=== PATIENT | female | born 1980 | race Caucasian/White ===

== ENCOUNTER → 2020-02-22 | Outpatient (CLI) | payer OTHER ==
[~2020-02-22] MED LIST: LIDOCAINE 1% MDV 20ML VIAL As Ordered ONE; SODIUM BICARBONATE 8.4% INJ 50MEQ 50 ML VIAL As Ordered ONE
--- NOTE | 2020-02-25 17:23 | REP ---
STEREOTACTIC IMAGES LEFT BREAST: Stereotactic floral arranger images of the left breast are performed prior to a scheduled stereotactic biopsy of clustered microcalcifications inferiorly in the left breast. A lateral to medial approach was planned. The calcifications are seen within the biopsy window. However, the compressed breast thickness was close to 1 cm and the tissue thickness was not adequate to allow for sufficient needle throw. The biopsy could not be performed. The patient will be scheduled at the [facility] to attempt stereotactic biopsy using the prone biopsy unit. Electronically Signed by Dakota Fernandez MD 02/26/2020 10:26 A
== END ==
LOC: M IRPRO 11:38
PROVIDERS: ATTEND Family Medicine
DX: R92.0 Mammographic microcalcification found on diagnostic imaging of breast (principal); Z53.8 Procedure and treatment not carried out for other reasons

== ENCOUNTER → 2020-03-07 | Outpatient (CLI) | payer OTHER ==
[~2020-03-07] MED LIST changes: +BIOT1CAP2 PO; -LIDOCAINE 1% MDV 20ML VIAL As Ordered ONE; +MULTCAP PO; -SODIUM BICARBONATE 8.4% INJ 50MEQ 50 ML VIAL As Ordered ONE; +SYNT112T2 PO; +VITA500079 PO
[2020-03-07 09:54] VITALS: BP 90/62
--- NOTE | 2020-03-07 11:44 | REP ---
STEREOTACTIC NEEDLE BIOPSY PROCEDURE LEFT BREAST: HISTORY: Microcalcifications. Comparison mammography is reviewed from February 05, 2020, February 12, 2020, and February 22, 2020. On the date, the patient had an attempt at stereotactic needle biopsy in an upright stereotactic breast unit. This failed because of lack of sufficient compressed breast thickness. The patient is referred for attempted stereotactic needle biopsy on the prone table device using a lateral arm approach. PROCEDURE: The patient was interviewed and informed consent was obtained by Alen Wade SA. The patient was placed in the prone biopsy table. Targeting images were obtained in the craniocaudal and the lateromedial approach and the microcalcifications were visualized. However, targeting could not be accomplished safely as the calcifications are apparently too close to the inferior breast skin to allow for safe sampling even with the lateral arm approach. Accordingly, the stereotactic biopsy procedure had to be abandoned. At my request, diagnostic mammography left breast was performed with tomography in an attempt to determine if these calcifications could be benign dermal calcifications. See separate report. IMPRESSION: Failed attempt at stereotactic needle biopsy, prone table, lateral arm approach. The target calcifications are too close to the overlying skin to allow for safe sampling.
--- NOTE | 2020-03-07 11:48 | REP ---
DIGITAL DIAGNOSTIC UNILATERAL LEFT BREAST MAMMOGRAPHY WITH 3-D TOMOGRAPHY: HISTORY: Screening diagnostic mammography demonstrated a microcalcific grouping. The patient is status post two failed attempts at stereotactic needle biopsy because of very thin compressed breast thickness. Comparison mammography is from February 22, 2020 and February 12, 2020. The mammogram is reviewed from February 05, 2020. FINDINGS: Today's views were obtained after a failed attempt at a lateral arm stereotactic approach with the prone breast biopsy table. The calcifications were lining up too close to the skin to allow for safe sampling in both the craniocaudal projection and the lateral medial projection. Accordingly, and at my request, repeat mammography with tomography was performed in attempt to see if these were actually dermal calcifications. The calcifications are seen six to eight tomographic slices and deep to the inferior skin in the left breast. They are not felt to be dermal accordingly. IMPRESSION: The calcifications are not felt to be dermal calcifications. Since stereotactic needle biopsy procedure is not feasible, consideration could be given to mammographically guided needle localization directed excisional biopsy.
== END ==
LOC: M WHCPRO 09:34
PROVIDERS: ATTEND Family Medicine
DX: R92.0 Mammographic microcalcification found on diagnostic imaging of breast (principal)
CPT/HCPCS: 77065; G0279

== ENCOUNTER → 2020-03-21 | Outpatient (CLI) | payer OTHER ==
--- NOTE | 2020-03-25 09:34 | REP ---
FOCUSED LEFT BREAST SONOGRAPHY: HISTORY: Microcalcifications left breast. Failed attempt at stereotactic needle biopsy for these microcalcifications. Ultrasound 12-o'clock position left breast 1-2 cm from the nipple for possible hypoechoic area. Please evaluate if calcifications seen. FINDINGS: Left breast is scanned in the 12-o'clock position. Normal heterogeneous fibroglandular background echotexture is seen. Smooth and augmentation implant margins are seen. No hypoechoic lesion mass or abnormal acoustic shadowing is observed. Incidentally noted is a simple cyst 5 mm in greatest diameter located 5 cm from the nipple. IMPRESSION: BIRADS category 2 benign findings. No microcalcifications could be visualized sonographically.
== END ==
LOC: M WHC 09:23
PROVIDERS: ATTEND Surgery
DX: N60.02 Solitary cyst of left breast (principal)

== ENCOUNTER → 2020-03-29 | Outpatient (CLI) | payer OTHER ==
[~2020-03-29] MED LIST changes: +IBUP200C25 PO; +ULTR50TA8 PO; +VITAD1000T PO
== END ==
LOC: M LABSMTC 08:27
PROVIDERS: ATTEND Anesthesiology
DX: Z01.818 Encounter for other preprocedural examination (principal); Z11.59 Encounter for screening for other viral diseases

== ENCOUNTER 2020-04-01 10:47 | Day surgery (SDC) | payer OTHER ==
[~2020-04-01] VITALS: Ht 172.7 cm; Wt 65.8 kg
[~2020-04-01 10:47] MED LIST changes: +HEPARIN SOD (PORCINE) 5000UNITS/ML VIAL (J1644 PER 1000UNITS) SQ ONE; +LIDOCAINE 2% 100MG/5ML SDV (FOR ANES.) As Ordered ONE; +LR 1,000 ML IV ONE; +MIDAZOLAM INJ 2MG/2ML VIAL (J2250 PER 1MG) As Ordered ONE; +ONDANSETRON 4MG/2ML VIAL As Ordered ONE; +ROCURONIUM BROMIDE 50 MG/5 ML VIAL As Ordered ONE; +SUGAMMADEX SODIUM 500 MG/5 ML VIAL (BRIDION) As Ordered ONE; -ULTR50TA8 PO; +ceFAZolin SOD 2 GM in IV 1 EA IV ONE; +dexameTHASONE 4 MG/ML 1ML VIAL (J1100 PER 1MG) As Ordered ONE; +fentaNYL 100 MCG/2 ML INJECTION (J3010) As Ordered ONE; +propofoL 200 MG/20 ML VIAL As Ordered ONE
[2020-04-01] MEDS ORDERED: LIDOCAINE 1% SDV 30ML VIAL As Ordered ONE (11:33)
[2020-04-01] MEDS ORDERED: BUPIVACAINE HCL 0.25% 30ML VIAL As Ordered ONE (11:33)
[2020-04-01] MEDS ORDERED: LIDOCAINE 1% MDV 20ML VIAL As Ordered ONE (11:35)
[2020-04-01] MEDS ORDERED: PHENYLephrine HCL 500 MCG/5 ML (100MCG/ML) SYRINGE (J2370) As Ordered ONE (13:13)
[2020-04-01] MEDS ORDERED: ePHEDrine SULFATE 25 MG/5 ML(5MG/ML) SYRINGE As Ordered ONE (13:13)
[2020-04-01] MEDS ORDERED: ACETAMINOPHEN 1000MG 100ML IV BTL (OFIRMEV) (J0131 PER 10MG) As Ordered ONE (13:17)
[2020-04-01] MEDS ORDERED: GLYCOPYRROLATE INJ 0.2 MG/ML 2 ML VIAL As Ordered ONE (13:28)
--- NOTE | 2020-04-01 14:45 | REP ---
SPECIMEN RADIOGRAPHY LEFT BREAST: HISTORY: Left breast excisional biopsy. Kopans wire placement. COMPARISON MAMMOGRAPHY: March 07, 2020 FINDINGS: A sequence of five specimen radiography images are presented. The initial four views appear to be of a single specimen. No microcalcifications are visible within this. The fifth image demonstrates a needle localization wire through the specimen. Adjacent to the wire, there is the microcalcific grouping which was visible on the January 07, 2020 prior mammography. Electronically Signed by Alan Casillas MD 04/01/2020 04:41 P
[2020-04-01] MEDS ORDERED: fentaNYL 100 MCG/2 ML INJECTION (J3010) IV PRN (15:15)
[2020-04-01] MEDS ORDERED: ONDANSETRON 4MG/2ML VIAL IV PRN (15:15)
[2020-04-01] MEDS ORDERED: LR 1,000 ML IV SCH (15:15)
[2020-04-01] MEDS ORDERED: METOCLOPRAMIDE INJ 10MG/2ML VIAL (J2765 PER 1) IV PRN (15:15)
[2020-04-01] MEDS ORDERED: HYDROMORPHONE HCL 0.5 MG/ 0.5 ML SYRINGE (J1170 PER 1) IV PRN (15:15)
[2020-04-01] MEDS ORDERED: oxyCODONE 5MG TAB PO PRN (15:15)
[2020-04-01] MEDS ORDERED: ULTR50TA8 PO (15:21)
--- NOTE | 2020-04-01 15:42 | REP ---
DIGITAL DIAGNOSTIC UNILATERAL LEFT BREAST MAMMOGRAPHY: Four views. HISTORY: Left breast excisional biopsy. Needle localization. Comparison mammography March 07, 2020. FINDINGS: A sequence of four craniocaudad views of the left breast document Kopans needle wire localization placement along the posterior aspect of the microcalcific grouping in this single-plane mammogram. Unreviewed
[2020-04-01 16:25] VITALS: BP 105/67
--- NOTE | 2020-04-01 18:53 | ROOPDOC ---
[facility] Report Of Operation Report of Operation DATE OF PROCEDURE: 04/01/20 PREPROCEDURE DIAGNOSES: Left breast suspicious calcifications. POSTPROCEDURE DIAGNOSES: Left breast suspicious calcifications. PROCEDURE: Left breast excisional biopsy of suspicious calcifications. SURGEON: Yodit Vu SUGAR COATING HAND: ANESTHESIA: Gen. anesthetic was used. ESTIMATED BLOOD LOSS: Approximately 5 mL. COMPLICATIONS: None. REMARKS: Calcifications seen in the final specimen, no clip is present since biopsy was not done prior to surgery. DESCRIPTION OF PROCEDURE: INDICATIONS: Ms. Newby is a 39-year-old woman who was found to have suspicious left breast calcifications on screening mammogram. Two attempts were made to do stereotactic biopsy but due to location of calcifications the biopsy was aborted. Patient was offered excisional biopsy. She was medically cleared for surgery by her primary care doctor. Risks and possible complications of surgical procedure including bleeding, infection and injury to surrounding structures were explained to the patient and she wished to proceed. Consent was signed. My initials were placed on the operative site. Subcutaneous injection of 5000 units of heparin was done in Preop. Wire localization was done prior to procedure by Radiology Department. Post localization DETAILS: Patient was taken to the operating room and placed on the operating room table. A sign in was called stating patients name, date of and the procedure to be done. Preoperative antibiotics were infused. Smooth induction of general anesthesia was done. Patients hands were extended on arm rests. Care was taken not to over extend the arms. Next, patients left breast and axilla were prepped and draped in the usual fashion. Care was taken not to displace the wire. Appropriate time out was done again prior second part of the procedure. Patients name, date of , and the procedure to be done were confirmed. Next, local anesthetic using 1% lidocaine and 0.25 % Marcaine 50/50 mix was injected at the site of planned periareolar incision. The incision was made with the scalpel. Subcutaneous skin flaps were raised and the guide wire was carefully pulled into the wound. Dissection was carries anteriorly to the wire where the calcifications were expected to be. Care was taken not to injure the breast implant. Three different specimens were excised of the tissue anterior to the wire and no calcifications were identified in those specimens. The final specimen included the wire and posterior tissues. Calcifications were seen in the final specimen. This final specimen was marked with the surgical inking kit following the standard colors recommendations keeping its proper orientation. The previously excised specimens were sent to pathology unoriended as a part of left breast excisional biopsy. The specimen was labeled with patients name and sent to pathology. Radiology department (Dr Fernandez) was consulted upon excision of each specimen and provided information regarding presence or absence of calcifications. Next, the wound was irrigated thoroughly and adequate hemostasis was assured. Additional local anesthetic was injected into surrounding tissues. space was approximated with 3-0 Vicryl. The dermis was closed with 3-0 Monocryl and skin was closed with 4-0 Monocryl. Surgical glue was placed over the incision. Patient emerged from the anesthesia without any problems. Fluffs were placed over the operative site and patients chest was wrapped snuggly in the ROCHELLE wrap. Sponge and instrument counts were done and were correct. Patient tolerated procedure well and was taken to recovery unit in stable condition. YODIT VU DO April 01, 2020 18:53
--- NOTE | 2020-04-03 16:49 | REP ---
LEFT BREAST LOCALIZATION The procedure was performed under the direct supervision of Dr. Fernandez. The patient has a history of clustered microcalcifications inferiorly in the left breast seen on a previous mammogram from [facility] performed on 02/12/2020. The patient had an attempted upright stereotactic breast biopsy on 02/22/2020 as well as an attempt a stereotactic biopsy in the prone table on 03/07/2020. In both cases there is not enough breast compression thickness in order to advance the needle. The risks and benefits of the procedure were explained to the patient and informed consent was obtained. A mediolateral approach was utilized. The calcifications were localized using mammographic guidance. The skin was prepped and draped in a sterile fashion. 1% lidocaine was used as a local anesthetic. A Kopans needle wire localization system was inserted. Follow-up mammographic images demonstrate the Kopans needle wire to be placed along the posterior aspect of the microcalcification. The patient tolerated the procedure well and there were no immediate complications. Electronically Signed by DEBBY Martini 04/01/2020 04:46 P Electronically Signed by Dakota Fernandez MD 04/01/2020 05:34 P
== END 2020-04-01 17:30 | disposition home or self-care (01) ==
LOC: M SDC 10:47
PROVIDERS: ATTEND Surgery
DX: D05.12 Intraductal carcinoma in situ of left breast (principal); E03.9 Hypothyroidism, unspecified; Z79.899 Other long term (current) drug therapy; Z98.82 Breast implant status; Z88.1 Allergy status to other antibiotic agents
CPT/HCPCS: 19125; 36415; 81025; 86850; 86900; 86901; 88305; J0131; J0690; J1100; J1644; J2250; J2370; J2405; J3010

== ENCOUNTER → 2020-04-16 | Outpatient (REF) | payer OTHER ==
[~2020-04-16] MED LIST changes: -HEPARIN SOD (PORCINE) 5000UNITS/ML VIAL (J1644 PER 1000UNITS) SQ ONE; +KEFL500C17 PO; -LIDOCAINE 2% 100MG/5ML SDV (FOR ANES.) As Ordered ONE; -LR 1,000 ML IV ONE; -MIDAZOLAM INJ 2MG/2ML VIAL (J2250 PER 1MG) As Ordered ONE; -ONDANSETRON 4MG/2ML VIAL As Ordered ONE; -ROCURONIUM BROMIDE 50 MG/5 ML VIAL As Ordered ONE; -SUGAMMADEX SODIUM 500 MG/5 ML VIAL (BRIDION) As Ordered ONE; +ULTR50TA8 PO; -ceFAZolin SOD 2 GM in IV 1 EA IV ONE; -dexameTHASONE 4 MG/ML 1ML VIAL (J1100 PER 1MG) As Ordered ONE; -fentaNYL 100 MCG/2 ML INJECTION (J3010) As Ordered ONE; -propofoL 200 MG/20 ML VIAL As Ordered ONE
[2020-04-16 13:46] LABS: BLOOD UREA NITROGEN 14 MG/DL (7-18); CARBON DIOXIDE LEVEL 29 MEQ/L (21-32); CHLORIDE LEVEL 108 MEQ/L (98-107); CREATININE FOR GFR 0.94 MG/DL (0.55-1.30); GLOMERULAR FILTRATION RATE > 60.0 (>58); GLUCOSE, FASTING 85 MG/DL (70-100); POTASSIUM SERUM 4.1 MEQ/L (3.5-5.1); SODIUM LEVEL 142 MEQ/L (136-145)
== END ==
LOC: M PLALAB 09:44
PROVIDERS: ATTEND Surgery
DX: D05.12 Intraductal carcinoma in situ of left breast (principal)

== ENCOUNTER → 2020-04-18 | Outpatient (CLI) | payer OTHER ==
[~2020-04-18] MED LIST changes: -KEFL500C17 PO; +PROHANCE 279.3MG/ML 15ML VIAL As Ordered ONE
--- NOTE | 2020-04-22 12:18 | REP ---
MRI BILATERAL BREASTS WITH AND WITHOUT CONTRAST: HISTORY: Ductal carcinoma in situ left breast. COMPARISON: Mammogram 02/05/2020, 02/12/2020 and 03/07/2020. TECHNIQUE: Multiple sequences obtained in the axial, coronal and sagittal planes prior to and following the intravenous administration of 13 mL ProHance. Images are evaluated on the [employer] software, including dynamic post-IV gadolinium, axial T1 fat sat images, subtraction images, color overlay images, CAD and MIP reconstruction images. There are bilateral breast implants. These are intact with no evidence of intracapsular or extracapsular rupture. There is moderate bilateral fibroglandular tissue present. A subcentimeter cyst is seen in the upper outer quadrant of the left breast. There is no axillary adenopathy bilaterally. A few small axillary lymph nodes are present bilaterally. Mild postsurgical changes are seen inferolaterally in the left breast. Patient had a recent needle localization and excisional biopsy. There is some minimal postsurgical enhancement in that region. No suspicious enhancing mass or morphologic abnormality is seen bilaterally. IMPRESSION: BIRADS category 6 known left breast cancer. 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 There is minimal postsurgical enhancement in that region of the left breast. No suspicious enhancing mass or morphologic abnormality is seen. Bilateral breast implants are intact with no evidence of intracapsular or extracapsular rupture. No axillary adenopathy. Electronically Signed by Dakota Fernandez MD 04/22/2020 01:41 P
== END ==
LOC: M RAD 14:19
PROVIDERS: ATTEND Family Medicine
DX: D05.12 Intraductal carcinoma in situ of left breast (principal)
CPT/HCPCS: A9576; C8908

== ENCOUNTER 2020-04-29 07:00 | Day surgery (SDC) | payer OTHER ==
[~2020-04-29] VITALS: Ht 172.7 cm; Wt 65.8 kg
[~2020-04-29 07:00] MED LIST changes: +HEPARIN SOD (PORCINE) 5000UNITS/ML VIAL (J1644 PER 1000UNITS) SQ ONE; +LIDOCAINE 1% MDV 20ML VIAL SQ PRN; +LR 1,000 ML IV ONE; -PROHANCE 279.3MG/ML 15ML VIAL As Ordered ONE; +ceFAZolin SOD 2 GM in IV 1 EA IV ONE
[2020-04-29] MEDS ORDERED: LIDOCAINE 2% 100MG/5ML SDV (FOR ANES.) As Ordered ONE (07:51)
[2020-04-29] MEDS ORDERED: fentaNYL 250 MCG/5 ML INJECTION (J3010) As Ordered ONE (07:51)
[2020-04-29] MEDS ORDERED: propofoL 200 MG/20 ML VIAL As Ordered ONE ×2 (07:51→09:47)
[2020-04-29] MEDS ORDERED: MIDAZOLAM INJ 2MG/2ML VIAL (J2250 PER 1MG) As Ordered ONE (07:51)
[2020-04-29] MEDS ORDERED: ACETAMINOPHEN 1000MG 100ML IV BTL (OFIRMEV) (J0131 PER 10MG) As Ordered ONE (07:51)
[2020-04-29] MEDS ORDERED: ONDANSETRON 4MG/2ML VIAL As Ordered ONE (07:51)
[2020-04-29] MEDS ORDERED: dexameTHASONE 4 MG/ML 1ML VIAL (J1100 PER 1MG) As Ordered ONE (07:51)
[2020-04-29] MEDS ORDERED: BUPIVACAINE HCL 0.25% 10ML VIAL As Ordered ONE (08:07)
[2020-04-29] MEDS ORDERED: LIDOCAINE 1% MDV 20ML VIAL As Ordered ONE (08:07)
[2020-04-29] MEDS ORDERED: GLYCOPYRROLATE INJ 0.2 MG/ML 2 ML VIAL As Ordered ONE (08:40)
[2020-04-29] MEDS ORDERED: ePHEDrine SULFATE 25 MG/5 ML(5MG/ML) SYRINGE As Ordered ONE (08:43)
[2020-04-29] MEDS ORDERED: KEFL500C17 PO (10:13)
[2020-04-29] MEDS ORDERED: ONDANSETRON 4MG/2ML VIAL IV PRN (10:15)
[2020-04-29] MEDS ORDERED: fentaNYL 100 MCG/2 ML INJECTION (J3010) IV PRN (10:15)
[2020-04-29] MEDS ORDERED: oxyCODONE 5MG TAB PO PRN (10:15)
[2020-04-29] MEDS ORDERED: LR 1,000 ML IV SCH (10:15)
[2020-04-29] MEDS ORDERED: HYDROMORPHONE HCL 0.5 MG/ 0.5 ML SYRINGE (J1170 PER 1) IV PRN (10:15)
[2020-04-29 12:25] VITALS: BP 110/70
--- NOTE | 2020-04-29 14:30 | ROOPDOC ---
[facility] Report Of Operation Report of Operation DATE OF PROCEDURE: 04/29/20 PREPROCEDURE DIAGNOSES: left DCIS POSTPROCEDURE DIAGNOSES:left DCIS PROCEDURE: left lumoectomy re-excision of margins SURGEON: Yodit Vu JUMBO OPERATOR: ANESTHESIA: general ESTIMATED BLOOD LOSS: Approximately 5 mL. COMPLICATIONS: none REMARKS: one calcification is seen in the excised posterior margin DESCRIPTION OF PROCEDURE: INDICATIONS: Ms. Newby is a 39-year-old woman who was found to have suspicious left breast calcifications on screening mammogram. Two attempts were made to do stereotactic biopsy but due to location of calcifications the biopsy was aborted. Patient was offered excisional biopsy. She was medically cleared for surgery by her primary care doctor. Left breast excisional biopsy was done on 04/01/20. DCIS was identified in the specimen. Margins were negative but superior and posterior margins were close measuring 1 mm. I recommended re-excision of those margins. Risks and possible complications of surgical procedure including bleeding, infection and injury to surrounding structures were explained to the patient and she wished to proceed. Consent was signed. My initials were placed on the operative site. Subcutaneous injection of 5000 units of heparin was done in Preop. DETAILS: Patient was taken to the operating room and placed on the operating room table. A sign in was called stating patients name, date of and the procedure to be done. Preoperative antibiotics were infused. Smooth induction of general anesthesia was done. Patients hands were extended on arm rests. Care was taken not to over extend the arms. Next, patients left breast and axilla were prepped and draped in the usual fashion. Appropriate time out was done. Patients name, date of , and the procedure to be done were confirmed. Next, local anesthetic using 1% lidocaine and 0.25 % Marcaine 50/50 mix was injected at the site of previous periareolar scar. The scar was excised in the elliptical fashion and sent to pathology. Previous lumpectomy cavity was identified. Posterior and Superior margins were identified. Posterior margin was excised first from entire length of lumpectomy bed. Black ink was used to lalita new true margin the farthest away from the previous lumpectomy bed. [employer] Intraop imaging system was used to image the specimen. Intraop consultation with radiology department ( Dr Fernandez) was done and I was informed that one single calcification is seen in the specimen. The specimen was labeled with patients name and sent to pathology. Next, superior margin was re-identified and excised from entire length of lympectomy bed. Black ink was used to lalita new true margin the farthest away from the previous lumpectomy bed. [employer] Intraop imaging system was used to image the specimen. Intraop consultation with radiology department ( Dr Fernandez) was done and I was informed that there are no calcifications seen in this specimen. The specimen was labeled with patients name and sent to pathology. Next, the wound was irrigated thoroughly and adequate hemostasis was assured. Additional local anesthetic was injected into surrounding tissues making sure that no deep surface is injected since implant is located there. Marking clips were used to lalita lumpectomy bed. space was approximated with 3-0 Vicryl. The dermis was closed with 3-0 Monocryl and skin was closed with 4-0 Monocryl. Surgical glue was placed over the incision. Patient emerged from the anesthesia without any problems. Fluffs were placed over the operative site and patients chest was wrapped snuggly in the ROCHELLE wrap. Sponge and instrument counts were done and were correct. Patient tolerated procedure well and was taken to recovery unit in stable condition. YODIT VU DO Apr 29, 2020 10:12
--- NOTE | 2020-04-30 13:43 | REP ---
SPECIMEN RADIOGRAPHS: Two specimen radiographs are performed. In the first specimen, there is probably a single tiny punctate calcification on the grade coordinates I9. Otherwise no other calcifications are seen in either specimen. Electronically Signed by Dakota Fernandez MD 05/01/2020 07:07 P
== END 2020-04-29 12:45 | disposition home or self-care (01) ==
LOC: M SDC 07:00
PROVIDERS: ATTEND Surgery
DX: D05.12 Intraductal carcinoma in situ of left breast (principal); N60.89 Other benign mammary dysplasias of unspecified breast; N60.22 Fibroadenosis of left breast; N64.1 Fat necrosis of breast; E03.9 Hypothyroidism, unspecified; Z79.899 Other long term (current) drug therapy; Z88.1 Allergy status to other antibiotic agents
CPT/HCPCS: 19120; 36415; 81025; 86850; 86900; 86901; 88302; 88305; J0131; J0690; J1100; J1644; J2250; J2405; J3010

== ENCOUNTER → 2020-05-22 | Outpatient (CLI) | payer OTHER ==
[~2020-05-22] MED LIST changes: +ACET-683 PO; -HEPARIN SOD (PORCINE) 5000UNITS/ML VIAL (J1644 PER 1000UNITS) SQ ONE; +KEFL500C17 PO; -LIDOCAINE 1% MDV 20ML VIAL SQ PRN; -LR 1,000 ML IV ONE; +TAMO20TA8 PO; -ceFAZolin SOD 2 GM in IV 1 EA IV ONE
--- NOTE | 2020-05-23 05:37 | RADONC ---
DATE OF CONSULTATION: 05/22/2020 CHIEF COMPLAINT: Left breast cancer. HISTORY OF PRESENT ILLNESS: Ms. Newby is a 39-year-old premenopausal woman, presented with abnormal mammography. She has strong family history of breast cancer. She underwent screening mammography for the first time on 02/05/2020, which showed grouping of calcification in the left breast and recommended further mammography with CAD. Left breast mammography done 02/12/2020 showed suspicious clusters of calcification in the left retroareolar region. Digital diagnostic unilateral left breast mammography with 3D tomography was obtained on 03/07/2020 after failed attempt for stereotactic biopsy and recpmmended mammographically guided needle localization directed excisional biopsy. Focused left breast sonography on 03/21/2020 scanned 12-o'clock position of the left breast; however, no microcalcification was visualized on sonography. Mammography-guided needle localization directed excisional biopsy was recommended.Left excisional biopsy performed 04/01/2020 showed DCIS 6 x 6 mm, nuclear grade of 3. Margins are not involved. Closest margin was 1.0 mm. Bilateral breast with/without contrast MRI on 04/18/2020 after the excisional biopsy. It revealed patient had the diagnosis of DCIS for the inferior left breast status post excisional biopsy. There is minimal postsurgical enhancement in the region of the left breast. No other suspicious enhancing mass or abnormality was seen. Bilateral breast implants are intact with no evidence of intracapsular or extracapsular rupture. On 2009, patient underwent reexcision of the left breast, There were no residual disease . PAST MEDICAL HISTORY: Significant for hypothyroidism. SURGICAL HISTORY: Includes: 1. twice, 2002 and 2005. 2. Breast implants 2008. 3. D and C 2000. 4. Tonsillectomy. 5. [place] teeth removed. 6. LASIK eye surgery 2012. CURRENT MEDICATIONS: - Synthroid 112 mcg tablet once a day - multivitamins - vitamin D - biotin 10 mg tablets once a day ALLERGIES: She is allergic to ERYTHROMYCIN; it makes her vomit. FAMILY HISTORY: Maternal grandmother had breast cancer in her 30s. Maternal uncle had leukemia as an adult. SOCIAL HISTORY: She is a nonsmoker. Denies any alcohol abuse. GYNECOLOGIC HISTORY: She is 3, para 4. She had one triplet and one miscarriage. Menarche 11 years of age. LMP 02/25/2020. REVIEW OF SYSTEMS: GENERAL AND CONSTITUTIONAL: She denies any recent weight changes, fatigue, headache. HEENT: Denies visual problems, hearing problems. RESPIRATORY/PULMONARY: Denies shortness of breath, coughing. CARDIOVASCULAR: Denies palpitations, chest pain. GASTROINTESTINAL: Denies nausea, vomiting, diarrhea, constipation. GENITOURINARY: Denies urinary frequency, dysuria, incontinence. MUSCULOSKELETAL: Denies any bone pain. SKIN: No eczema. No psoriasis. NEUROLOGICAL: Denies headache. PSYCHIATRIC/EMOTIONAL: Denies depression or anxiety. ECOG PERFORMANCE STATUS: 0 PHYSICAL EXAMINATION: Examination revealed well-developed and nourished female. She is not in apparent distress. Patient was alert and oriented. HEENT: Normocephalic, atraumatic. Oropharynx clear. NECK: Supple. No cervical lymphadenopathy. CARDIOVASCULAR: Regular rhythm and rate. RESPIRATORY: Clear to auscultation. ABDOMEN: Soft, nontender, nondistended without any palpable mass or organomegaly. GENITOURINARY: Not performed. BREASTS: Both breasts are status post mammoplasty. There are no skin changes. Both are same size. No lumps or tenderness. SKIN: No skin lesions. EXTREMITIES: No clubbing, swelling, or cyanosis. NEUROLOGICAL: Strength and sensory grossly intact. PSYCHIATRIC: Mood and affect appropriate. PATHOLOGICAL FINDINGS: As mentioned in HPI. RADIOLOGICAL FINDINGS: As mentioned in HPI. ICD-10 code; DO5.12 STAGING: Stage 0, [id number]. ASSESSMENT: Ms. Newby is a 39-year-old premenopausal female, presented with abnormal mammography on 02/15/2020. She had excisional biopsy, which showed DCIS 6 x 6 mm, grade 3; closest margin is 1.0 mm. ER/TN positive. Patient underwent the excision of the left breast,on 2019, and there were no residual diseases. RECOMMENDATIONS: Patient was accompanied by her . We have discussed the nature of the disease as well as management and the role of radiation therapy. She understands that she has stage 0 carcinoma with high grade. Based on NCCN guidelines, recommend mastectomy or lumpectomy followed by radiation therapy, which is the standard of care and the recommended treatment. I discussed radiation schedules. I recommend conventional radiation therapy with dose of 5000 cGy in 25 fractions considering her implant. I discussed the procedures and potential side effects associated with the treatment, I recommended genetic testing. have given them a chance to ask questions and concerns and they were answered to their satisfaction. KP
== END ==
LOC: M ONCR 13:01
PROVIDERS: ATTEND Radiology Radiation Oncology
DX: C50.912 Malignant neoplasm of unspecified site of left female breast (principal)

== ENCOUNTER 2020-06-19 10:44 | Outpatient (RCR) | payer OTHER ==
[2020-06-03 11:18] LABS: BASO % 0.9 % (0.0-1.0); EOS # 0.3 10^3/uL (0.0-0.5); EOS % 5.6 % (0.0-3.0); HEMATOCRIT 39.4 % (36.0-47.0); HEMOGLOBIN 12.6 g/dl (12.0-15.5); LYMPH # 2.1 10^3/uL (1.5-5.0); LYMPH % 45.6 % (24.0-44.0); MEAN CORPUSCULAR HEMOGLOBIN 31.1 pg (27.0-33.0); MEAN CORPUSCULAR VOLUME 97.3 fl (80.0-96.0); MONO # 0.4 10^3/uL (0.0-0.8); NEUTROPHILS # 1.8 10^3/uL (1.5-8.5); NEUTROPHILS % 39.7 % (36.0-66.0); PLATELET COUNT, AUTOMATED 179 10^3/uL (150-450); RED BLOOD COUNT 4.05 10^6/uL (4.00-5.40); WHITE BLOOD COUNT 4.6 10^3/uL (4.0-10.0)
--- NOTE | 2020-06-11 15:35 | RADONC ---
RADIATION ONCOLOGY SIMULATION NOTE DATE: 06/03/2020 CHART NUMBER: [id number] SIMULATION NOTE: Ms. Newby was taken to the CT scan for CT simulation of her left chest wall field. CT was accomplished without difficulty or discomfort. Radiation treatment planning is underway and radiation treatments will begin subsequently. An immobilization device was created and will be used throughout the course of treatment. It was created without difficulty or discomfort. I was physically present throughout the course of CT simulation.
[~2020-06-19 10:44] MED LIST changes: +D31000TA2 PO; -VITAD1000T PO
== END 2020-06-27 ==
LOC: M ONCR 10:44
PROVIDERS: ATTEND Radiology Radiation Oncology
DX: D05.12 Intraductal carcinoma in situ of left breast (principal)

== ENCOUNTER → 2020-07-28 | Outpatient (RCR) | payer OTHER | LOC: M ONCR 07-02 10:45 | PROVIDERS: ATTEND General Practice | DX: D05.12 Intraductal carcinoma in situ of left breast (principal) ==

== ENCOUNTER 2020-08-05 10:44 | Outpatient (RCR) | payer OTHER | END 2020-08-27 | LOC: M ONCR 10:44 | PROVIDERS: ATTEND General Practice | DX: D05.12 Intraductal carcinoma in situ of left breast (principal); R53.83 Other fatigue ==

== ENCOUNTER → 2020-11-03 | Outpatient (CLI) | payer OTHER ==
--- NOTE | 2020-11-03 15:14 | REP ---
INDICATION: LT BREAST U/S LATERAL ASPECT OF LUMPECTOMY. Status post lobectomy for breast carcinoma March of 2020. Palpable lump in the lateral aspect of the low lumpectomy scar. COMPARISON: None. TECHNIQUE: Targeted left breast sonography at the site of the palpable abnormality. FINDINGS: Heterogeneous fibroglandular background echotexture is seen. Augmentation implant margins are smooth. There is a 1.1 x 0.9 x 0.8 cm area of heterogeneous tissue at the site of the palpable lump 2 cm from the nipple 3 o'clock position. This is characterized by hypoechoic periphery surrounding a hyperechoic area in a nearly anechoic area. No Doppler flow is seen within or adjacent to the lesion. No other abnormality. IMPRESSION: BI-RADS category 3 probably benign findings. Heterogeneous predominantly solid complex 1.1 cm nodule at the site of the palpable lump along the lateral aspect of the scar most likely related to granulation tissue and postoperative change. Recommend follow-up targeted left breast sonography in 6 months. <Electronically signed by Balta Casillas > 11/03/20 1969
== END ==
LOC: M WHC 10:28
PROVIDERS: ATTEND Surgery
DX: D05.12 Intraductal carcinoma in situ of left breast (principal)

== ENCOUNTER → 2021-02-06 | Outpatient (CLI) | payer OTHER ==
[~2021-02-06] MED LIST changes: +MULT-90 PO
--- NOTE | 2021-02-06 11:26 | REP ---
INDICATION: HIGH RISK/DUCTAL CA OF LEFT BREAST; N63.0 MASS OF BREAST/CA. Palpable abnormality on clinician breast exam laterally in the left breast at 3 o'clock, question scar. COMPARISON: Mammography from February 05, 2020 is reviewed. Comparison MRI study March 19, 2020. Patient is status post lumpectomy and radiation therapy for malignancy in the left breast. Patient denies being able to feel a lump. Comparison sonography is from November 03, 2020. TECHNIQUE: Bilateral CC and MLO) view(s) were taken. Implant displaced and implant included views were acquired bilaterally. 3D tomography is performed. Targeted left breast sonography is performed as requested by the referring provider. FINDINGS: Heterogeneously dense breast parenchyma is again seen. There are surgical clips in the subareolar region of the left breast post lumpectomy. Implant margins are smooth. No mass lesion is observed on either side. No architectural distortion or microcalcification is observed. No worrisome skin changes seen. The Volpara volumetric breast density pattern is C. Targeted left breast sonography: Targeted left breast ultrasound is performed in the 3 o'clock region. Heterogeneous fibroglandular background echotexture is seen. No cyst, mass, architectural distortion or other suspicious sonographic finding. The heterogeneous area 1.1 cm in diameter at 3 o'clock seen on the prior study is again noted unchanged and is felt to be consistent with normal breast parenchyma and or stable scarring.. IMPRESSION: BI-RADS category 2 benign findings. . This mammogram was interpreted with the aid of an FDA-approved computer-aided detection system. The patient states she had a clinical breast exam in November of 2020. The patient letter being requested is M2. RECOMMENDATION: Repeat screening mammography recommended 1 year (for women over 40). Clinical follow-up. <Electronically signed by Balta Casillas > 02/06/21 [id number]
== END ==
LOC: M WHC 09:32
PROVIDERS: ATTEND Surgery
DX: D05.12 Intraductal carcinoma in situ of left breast (principal); Z92.3 Personal history of irradiation; N63.0 Unspecified lump in unspecified breast
CPT/HCPCS: 76642; 77066; G0279

== ENCOUNTER → 2021-02-11 | Outpatient (CLI) | payer OTHER ==
--- NOTE | 2021-02-11 09:49 | RADONC ---
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 She is s/p lumpectomy with margin directed re-excision on 04/02/20 and 04/29/20, respectively. She completed adjuvant RT 48.6 Gy in 27 fractions to the left whole breast with IMRT on 08/05/20. She continues on tamoxifen. Diagnosis/Treatment History Oncologic History 02/05/20 mammogram with left breast calcifications 03/21/20 left breast US discordant with mammo 04/01/20 mammo directed lumpectomy with DCIS grade 3 ER/VA+ margins close 04/29/21 margin directed re-excision with negative margins achieved 06/17/20-08/05/20 adjuvant RT 48.6 Gy in 27 fractions 07/2020- tamoxifen Interval History Irina is moving to [facility] in the coming week. Plans to be there at least 1 year. She has care set up with the [facility] facility at [facility]. Will be living in [place]. She has no complaints related to RT. No skin changes or asymmetry noted. She has been having ongoing joint pains and hot flashes with tamoxifen which are mildly bothersome. Appetite good weight stable. Current Therapy Tamoxifen Stage Stage 0 left breast DCIS pTisNXMX ER/VA+ Grade 3 Social History: Non-smoker Non-drinker Allergies / Meds Allergies: Coded Allergies: erythromycin base (Verified Allergy, Mild, vomiting, 04/22/20) Home Meds Active Scripts Tamoxifen Citrate (Tamoxifen Citrate) 20 Mg Tablet, 1 TAB PO DAILY, #90 TAB 4 Refills Prov:NANI MEJIAS MD 01/01/21 Reported Medications Multivitamin (Multivitamin) 1 Each Tablet, 1 EACH PO DAILY, TAB 01/01/21 Acetaminophen (Acetaminophen) 500 Mg Tablet, 500 MG PO Q6HP for 15 Days, #60 TAB 05/26/20 Ibuprofen (Ibuprofen) 200 Mg Capsule, 200 MG PO PRN PRN for PAIN, CAP 03/26/20 Cholecalciferol (Vitamin D3) (Vitamin D3) 1,000 Unit Tablet, 5000 UNITS PO DAILY, TAB 03/26/20 Biotin (Biotin) 1 Mg Capsule, 1 CAP PO DAILY for 30 Days, #30 CAP 03/07/20 Levothyroxine Sodium (Synthroid) 112 Mcg Tablet, 1 TAB PO DAILY for 30 Days, #30 TAB 03/07/20 Review of Systems Review of Systems Constitutional: Reports: Fatigue; Denies: Weight Loss Eyes: Denies: Pain HEENT: Denies: Head Aches Skin: Denies: Rash, Lesions Breast: Denies: New Breast Lumps / Masses, Nipple Retraction, Nipple Discharge, Breast Skin Changes, Breast Pain or Tenderness Pulmonary: Denies: Dyspnea Cardiovascular: Denies: Chest Pain Gastrointestinal: Denies: Abdominal Pain Musculoskeletal: Reports: Joint pain; Denies: Neck pain, Arm pain Neurological: Denies: Weakness, Numbness Psych: Reports: Mood Normal Physical Examination Vital Signs Wt 145 lbs T 98 P 64 RR 18 BP 122/88 O2 100% Pain 0 Fatigue 0 General Exam: Positive: Alert, Cooperative; Negative: No Acute Distress Eye Exam: Positive: PERRLA, EOMI ENT EXAM: Positive: Atraumatic Neck Exam: Positive: Supple; Negative: Lymphadenopathy Breast Exam: Positive: Symmetric Bilaterally; Negative: Lumps or Masses, Nipple Retraction, Nipple Discharge, Skin Changes, Other Breast Findings (No axillary adenopathy, no palpable breast lesions or overlying skin changes BL) Abdomen Exam: Positive: Soft Extremity Exam: Negative: Edema Skin Exam: Positive: Nl turgor and temperature Neuro Exam: Positive: Normal Gait, Normal Speech, Cranial Nerves 3-12 NL Psych Exam: Positive: Mental status NL Diagnostic and Laboratory Diagnostic Review Radiologic images, relevant labs and pathology reports were personally reviewed and discussed with Ms. Newby. Assessment and Plan Impression Assessment Ms. 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 She is s/p lumpectomy with margin directed re-excision on 04/02/20 and 04/29/20, respectively. She completed adjuvant RT 48.6 Gy in 27 fractions to the left whole breast with IMRT on 08/05/20. She continues on tamoxifen. She is having some tamoxifen side effects but expressed she is coping and resolute to stay on the medication. She is seeing Dr. Mcbride before she leaves for [facility] as well. She has established care in place through the . We will send records if requested. On exam there are no sequelae of RT evident. She has no clinical evidence of recurrence. We discussed the importance of continued surveillance exams, mammography and early detection. We wished her well on her new endeavors in [place] and remain available to her at anytime. Performance Status ECOG 0 Plan Moving to [facility], care in place, no scheduled follow up. Ms. Newby was encouraged to call with questions or concerns in the interim period. Billing Statement Total time of [20] minutes was spent preparing for the visit [2], obtaining HPI [3], examining the patient [4], reviewing diagnostic tests [2], discussing management options [3], coordinating care [0], and writing this note [6]. SHARA BERRY MD Feb 11, 2021 09:49
== END ==
LOC: M ONCR 08:57
PROVIDERS: ATTEND General Practice
DX: D05.12 Intraductal carcinoma in situ of left breast (principal)